=== PATIENT | female | born 1960 | race African-American/Black ===

== ENCOUNTER → 2018-06-24 | Outpatient (CLI) | payer BC ==
--- NOTE | 2018-06-24 13:55 | KCIC ---
Right breast ultrasound: Reason for examination: Nodular density on screening mammogram. Comparison is made to mammographic exam dated 06/12/2018. Ultrasound examination of the right breast was performed in the area of mammographic concern and at the right axilla. In the 9:30 position 7 cm from the nipple and corresponding to the area of mammographic concern, there is a small benign-appearing hypoechoic circumscribed nodule measuring approximately 4.8 mm in greatest dimension. This shows some mild posterior acoustic enhancement and probably represents a complicated cyst. No suspicious-appearing nodules are seen. No abnormal appearing lymph nodes are seen in the axilla. IMPRESSION: Small benign-appearing hypoechoic nodule at the 9:30 position measuring 4.8 mm in size which appear to correspond with the area of mammographic concern. Recommend reevaluation with ultrasound in 3 months. BI-RADS Category 3: Probably Benign. "Our facility is accredited by the [employer] Mammography Program." This patient's information has been entered into a reminder system for the patient to be notified with the results of her examination and a target date for the next mammogram. Electronically signed by: Naomi Tian MD (06/24/2018 1:51 PM) [id number]
== END | disposition home or self-care (01) ==
LOC: KCIC US 13:10
PROVIDERS: ATTEND Obstetrics & Gynecology
DX: R92.8 Other abnormal and inconclusive findings on diagnostic imaging of breast (principal)
CPT/HCPCS: 76641